=== PATIENT | male | born 1995 | race Caucasian/White ===

== ENCOUNTER 2018-07-11 12:12 | Emergency (ER) | payer BC ==
[2018-07-11 12:23] VITALS: BP 134/84
--- NOTE | 2018-07-11 12:27 | UC ---
Throat Pain/Nasal Jesu HPI - HPI Summary HPI Summary: 23 yo male presents with body aches, fatigue, productive cough, and some shortness of breath over the last 3 days. Has felt feverish at times, but has not taken his temperature. Has been taking dayquill with no relief. Does not believe he has a hx of asthma. Denies sinus symptoms, sore throat, chest pain, abdominal pain, n/v. - History of Current Complaint Chief Complaint: UCGeneralIllness Stated Complaint: BACK PAIN, HEADACHE, AND FEVER Time Seen by Provider: 07/11/18 12:26 Hx Obtained From: Patient Onset/Duration: Gradual Onset Severity: Moderate Pain Intensity: 5 Pain Scale Used: 0-10 Numeric Cough: Productive - Allergies/Home Medications Allergies/Adverse Reactions: Allergies Allergy/AdvReac Type Severity Reaction Status Date / Time No Known Allergies Allergy Verified 07/11/18 12:24 Home Medications: Home Medications Adderall 30 mg- 30 mg PO DAILY 07/11/18 [History Confirmed 07/11/18] Desvenlafaxine Succinate [Pristiq] 50 mg PO 07/11/18 [History] traZODone TAB* [Desyrel TAB*] 50 mg PO DAILY 07/11/18 [History Confirmed ] PMH/Surg Hx/FS Hx/Imm Hx - Additional Past Medical History Additional PMH: ADHD Psychological History: Anxiety - Surgical History Surgical History: Yes - Family History Known Family History: Positive: Respiratory Disease - Social History Occupation: Student Lives: With Family Alcohol Use: Occasionally Substance Use Type: None Smoking Status (MU): Never Smoked Tobacco Review of Systems All Other Systems Reviewed And Are Negative: Yes Constitutional: Positive: Fever, Fatigue, Other - Body aches Skin: Positive: Negative Eyes: Positive: Negative ENT: Positive: Negative Respiratory: Positive: Shortness Of Breath, Cough Cardiovascular: Positive: Negative Gastrointestinal: Positive: Negative Neurovascular: Positive: Negative Neurological: Positive: Negative Psychological: Positive: Negative Physical Exam - Summary Physical Exam Summary: GENERAL: NAD. Mildly ill appearing. SKIN: No rashes, sores, lesions, or open wounds. HEENT: Head: AT/NC Eyes: Conjunctiva clear without inflammation or discharge. Ears: Hearing grossly normal. TMs intact, no bulging, erythema, or edema. Nose: Nasal mucosa pink and moist. NTTP maxillary and frontal sinus. Throat: Posterior oropharynx without exudates, erythema, or tonsillar enlargement. Uvula midline. NECK: Supple. Nontender. No lymphadenopathy. CHEST: Mild wheezing throughout. Crackles LLL. No accessory muscle use. Breathing comfortably and in no distress. CV: RRR. Without m/r/g. Pulses intact. Cap refill <2seconds NEURO: Alert. PSYCH: Age appropriate behavior. Triage Information Reviewed: Yes Vital Signs: Initial Vital Signs Temp 97.7 F 07/11/18 12:21 Pulse 110 07/11/18 12:21 Resp 20 07/11/18 12:21 BP 134/84 07/11/18 12:21 Pulse Ox 99 07/11/18 12:21 Vital Signs Reviewed: Yes Throat Pain/Nasal Course/Dx - Course Course Of Treatment: CXR: IMPRESSION: SMALL LEFT BASILAR INFILTRATE. Duoneb: Pt reports improvement in breathing and easier to take a deep breath. Rx for doxycycline. - Differential Dx/Diagnosis Provider Diagnosis: LLL pneumonia Discharge - Sign-Out/Discharge Documenting (check all that apply): Patient Departure All imaging exams completed and their final reports reviewed: Yes - Discharge Plan Condition: Stable Disposition: HOME Prescriptions: DOXYcycline CAP(*) [DOXYcycline 100MG CAP(*)] 100 mg PO BID #20 cap Patient Education Materials: Community Acquired Pneumonia (ED) Referrals: No Primary Care Phys,NOPCP [Primary Care Provider] - Additional Instructions: If you develop a fever, shortness of breath, chest pain, new or worsening symptoms - please call your PCP or go to the ED. - Billing Disposition and Condition Condition: STABLE Disposition: Home - Attestation Statements Provider Attestation: I was available for consult. This patient was seen by the LORRAINE. The patient was not presented to, seen by, or examined by me. -Julia
[2018-07-11] MEDS: Albuterol/Ipratropium NEB.SOL* Albuterol 2.5 MG/Ipratropium 0.5 MG 3 ML INH ONE (13:27)
== END 2018-07-11 13:50 | disposition home or self-care (01) ==
LOC: UCEAST 12:12
DX: J18.9 Pneumonia, unspecified organism (principal); F41.9 Anxiety disorder, unspecified; F90.9 Attention-deficit hyperactivity disorder, unspecified type
CPT/HCPCS: 71046; 99202; A9270-GY; G0463